=== PATIENT | male | born 1990 | race Caucasian/White ===

== ENCOUNTER 2017-06-24 22:51 | Emergency (ER) | payer MEDICAID ==
[~2017-06-24] VITALS: Ht 182.9 cm; Wt 120.7 kg
[2017-06-24 23:00] VITALS: Ht 182.9 cm; Wt 120.7 kg
[2017-06-24 23:48] VITALS: BP 120/70
== END 2017-06-24 23:48 | disposition home or self-care (01) ==
LOC: ED 22:51
DX: J02.0 Streptococcal pharyngitis (principal); R10.32 Left lower quadrant pain
CPT/HCPCS: J1885

== ENCOUNTER 2018-10-27 01:10 | Emergency (ER) | payer OTHER ==
[~2018-10-27] VITALS: Ht 182.9 cm; Wt 120.7 kg
[2018-10-27 01:14] VITALS: Ht 182.9 cm; Wt 120.7 kg
[2018-10-27 02:56] VITALS: BP 124/79
[2018-10-28 05:09] LABS: RAPID PLASMA REAGIN Non Reactive (Non Reactive)
== END 2018-10-27 02:56 | disposition home or self-care (01) ==
LOC: ED 01:10
PROVIDERS: Emergency Medicine
DX: A60.00 Herpesviral infection of urogenital system, unspecified (principal); F17.210 Nicotine dependence, cigarettes, uncomplicated; R50.9 Fever, unspecified; J02.9 Acute pharyngitis, unspecified
CPT/HCPCS: 87491; 87591; 99406; J0696

== ENCOUNTER 2019-09-22 03:52 | Emergency (ER) | payer OTHER ==
[~2019-09-22] VITALS: Ht 182.9 cm; Wt 130.2 kg
[2019-09-22 04:00] VITALS: Ht 182.9 cm; Wt 130.2 kg
[2019-09-22 04:46] VITALS: BP 136/82
== END 2019-09-22 04:46 | disposition home or self-care (01) ==
LOC: ED 03:52
DX: N48.22 Cellulitis of corpus cavernosum and penis (principal)

== ENCOUNTER 2020-04-15 03:23 | Emergency (ER) | payer OTHER ==
[~2020-04-15] VITALS: Ht 182.9 cm; Wt 130.2 kg
[2020-04-15 03:32] VITALS: Ht 182.9 cm; Wt 130.2 kg
[2020-04-15] MEDS ORDERED: MOT800 PO (03:49)
[2020-04-15] MEDS ORDERED: PENICILLIN V P500 MG PO (03:49)
[2020-04-15 04:20] VITALS: BP 131/89
== END 2020-04-15 04:20 | disposition home or self-care (01) ==
LOC: ED 03:23
DX: J02.9 Acute pharyngitis, unspecified (principal); F17.210 Nicotine dependence, cigarettes, uncomplicated
CPT/HCPCS: 99406; J1100; J1885